=== PATIENT | male | born 1995 | race Hispanic/Latino ===

== ENCOUNTER 2017-10-12 20:39 | Emergency (ER) | payer OTHER ==
[2017-10-12 20:46] VITALS: TEMP 97.7
[2017-10-12] MEDS ORDERED: Sodium Chloride 0.9% 1,000 ML IV STA (21:02)
--- NOTE | 2017-10-12 21:22 | ED PDOC ---
HPI:Nausea, Vomiting, Diarrhea Chief Complaint (Provider): Vomiting History Per: Patient History/Exam Limitations: no limitations Current Symptoms Are (Timing): Still Present Quality Of Discomfort: denies: Sharp, Dull, Aching, Cramping Associated Symptoms: Nausea, Vomiting. denies: Fever, Chills, Diarrhea Exacerbating Factors: Food Alleviating Factors: None Additional History Per: Patient Additional Complaint(s): 22 year old male with no significant medical hx presents to ED with complaints of nausea and vomiting since early AM. Went out drinking last night, estimates about 8-10 oz of etoh. Drank rum, tequila, [place] iced tea. Typically recovers quickly, since symptoms did not resolve he came to ED. He has not taken anything OTC for his symptoms. He has been unable to tolerate liquids or solids. Tried eating bread, drinking water/gatorade with subsequent vomiting. Denies any other drug use. 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 <Shirley Anaya - Last Filed: 10/12/17 23:51> <Elise Degroot - Last Filed: 10/13/17 16:12> Chief Complaint (Nursing): GI Problem Supervising Attending Note - Attestation: I have personally seen and examined this patient.: Yes I have fully participated in the care of the patient.: Yes I have reviewed all pertinent clinical information, including history, physical exam and plan: Yes <Elise Degroot - Last Filed: 10/13/17 16:12> Past Medical History Vital Signs: Last Vital Signs Temp 97.7 F 10/12/17 20:44 Pulse 110 H 10/12/17 20:44 Resp 22 10/12/17 20:44 BP 145/87 10/12/17 20:44 Pulse Ox 97 10/12/17 20:44 - Medical History PMH: No Chronic Diseases - Family History Family History: States: Unknown Family Hx <Shirley Anaya - Last Filed: 10/12/17 23:51> Vital Signs: Last Vital Signs Temp 97.7 F 10/12/17 20:44 Pulse 98 H 10/12/17 23:55 Resp 17 10/12/17 23:55 BP 130/64 10/12/17 23:55 Pulse Ox 99 10/12/17 23:55 <ZaneElise Vilma - Last Filed: 10/13/17 16:12> - Home Medications Home Medications: Ambulatory Orders Medication Instructions Recorded Ondansetron ODT [Zofran ODT] 1 odt PO Q6 PRN #20 odt 10/12/17 - Allergies Allergies/Adverse Reactions: Allergies Allergy/AdvReac Type Severity Reaction Status Date / Time No Known Allergies Allergy Verified 10/12/17 20:46 Review of Systems Constitutional: Negative for: Fever, Chills, Sweats, Weakness Eyes: Negative for: Vision Change ENT: Negative for: Ear Discharge, Nose Discharge Cardiovascular: Negative for: Chest Pain, Palpitations, Edema, Light Headedness Respiratory: Negative for: Cough, Shortness of Breath, Pleuritic Pain Gastrointestinal: Positive for: Nausea, Vomiting. Negative for: Abdominal Pain , Diarrhea, Constipation Genitourinary Male: Negative for: Dysuria, Frequency, Incontinence, Hematuria Skin: Negative for: Rash Neurological: Negative for: Weakness, Numbness, Incoordination, Confusion, Altered Mental Status Psych: Negative for: Anxiety, Depression <Shirley Anaya - Last Filed: 10/12/17 23:51> Physical Exam - Reviewed Vital Signs Reviewed: Yes (tachycardic) - Physical Exam Appears: Positive for: Well, Non-toxic, No Acute Distress Head Exam: Positive for: ATRAUMATIC, NORMAL INSPECTION, NORMOCEPHALIC Skin: Positive for: Normal Color, Warm, DRY Eye Exam: Positive for: EOMI, Normal appearance, PERRL Neck: Positive for: Normal, Painless ROM Cardiovascular/Chest: Positive for: Regular Rate, Rhythm, Tachycardia. Negative for: Murmur Respiratory: Positive for: Normal Breath Sounds. Negative for: Accessory Muscle Use, Stridor, Wheezing Gastrointestinal/Abdominal: Positive for: Normal Exam, Soft. Negative for: Tenderness, Organomegaly Neurologic/Psych: Positive for: Alert, judge II-XII, Oriented, Mood/Affect, Cerebellar Tests <Shirley Anaya - Last Filed: 10/12/17 23:51> - Laboratory Results Result Diagrams: 10/12/17 21:56 10/12/17 21:56 - ECG O2 Sat by Pulse Oximetry: 97 - Progress ED Course And Treament: 22 year old male with nausea, vomiting, likely secondary to etoh use, gastritis. -CBC -CMP -Mag -Phos -Lipase -BAL -1L IVF -Zofran -Pepcid case d/w Dr. Degroot. 23:00 patient sleeping, no longer nauseous. -PO challenge 23:45 tolerated PO challenge, feeling better <Shirley Anaya - Last Filed: 10/12/17 23:51> - Laboratory Results Result Diagrams: 10/12/17 21:56 10/12/17 21:56 <Elise Degroot - Last Filed: 10/13/17 16:12> Disposition - Disposition Disposition Time: 23:51 <Shirley Aanya - Last Filed: 10/12/17 23:51> <Elise Degroot - Last Filed: 10/13/17 16:12> - Clinical Impression Clinical Impression: Vomiting, Dehydration - Disposition Referrals: [facility] [Outside] Condition: IMPROVED Prescriptions: Ondansetron ODT [Zofran ODT] 1 odt PO Q6 PRN #20 odt PRN Reason: Nausea/Vomiting Instructions: Dehydration, Adult (DC), Nausea and Vomiting, Adult (DC) Forms: [employer] (Hungarian)
[2017-10-12 22:01] LABS: BASO % 0.1 % (0.0-2.0); HEMOGLOBIN 16.3 g/dL (12.0-18.0); LYMPH # 1.1 K/uL (1.0-4.3); LYMPH % 12.6 % (20.0-40.0); MEAN CELL VOLUME 86.8 fl (80.0-94.0); MEAN CORPUSCULAR HGB CONC 34.5 g/dL (33.0-37.0); MEAN PLATELET VOLUME 7.7 fl (7.2-11.7); MONO # 0.7 K/uL (0.0-0.8); MONO % 7.4 % (0.0-10.0); NEUT # 7.2 K/uL (1.8-7.0); NEUT % 79.9 % (50.0-75.0); NRBC % 0.1 % (0.0-0.0); RBC 5.46 Mil/uL (4.40-5.90); RED CELL DISTRIBUTION WIDTH 12.6 % (11.5-14.5); WHITE BLOOD COUNT 9.1 K/uL (4.8-10.8)
[2017-10-12 22:13] LABS: ALB/GLOB RATIO 1.4 (1.0-2.1); ALT/SGPT 36 U/L (21-72); AST/SGOT 37 U/L (17-59); BLOOD UREA NITROGEN 25 mg/dl (9-20); CALCIUM 9.8 mg/dL (8.4-10.2); GFR AFRICAN-AMERICAN > 60; GFR NON-AFRICAN AMERICAN > 60; LIPASE 43 U/L (23-300)
[2017-10-13 00:05] VITALS: BP 130/64; PULSE 98; RESP 17; O2SAT 99
== END 2017-10-13 00:06 | disposition home or self-care (01) ==
LOC: H.ER 20:39
DX: E86.0 Dehydration (principal); R11.10 Vomiting, unspecified
CPT/HCPCS: 80053; 80320; 83690; 83735; 84100; 85025; 96361; 96374; 96375; 99283; J2405; J7040